=== PATIENT | female | born 1950 | race Caucasian/White ===

== ENCOUNTER 2016-10-18 02:48 | Inpatient (IN) | payer OTHER ==
[~2016-10-18] VITALS: Ht 157.5 cm; Wt 63.8 kg
[~2016-10-18 02:48] MED LIST: FURO-92 PO; GABA300C10 PO; GLIP5TAB10 PO; LOVA20TA2 PO; METF500T4 PO; MORP-52 PO; OXYC10TA6 PO; VERA120T74 PO
[2016-10-18] MEDS ORDERED: ONDANSETRON 2MG/ML, 2ML ONE ×2 (02:55→02:59)
[2016-10-18] MEDS ORDERED: MORPHINE SULFATE 4 MG/ML, 1ML ONE ×2 (02:58→02:59)
[2016-10-18] MEDS ORDERED: SODIUM CHLORIDE FLUSH 10ML SYR IVF ONE (03:00)
[2016-10-18] MEDS ORDERED: SODIUM CHLORIDE 0.9% 1,000ML IVBOLUS ONE ×2 (03:00→05:00)
[2016-10-18] MEDS ORDERED: ONDANSETRON 2MG/ML, 2ML IVPush ONE (03:00)
[2016-10-18] MEDS ORDERED: HYDROmorphone 1 MG/ML, 1ML ONE ×2 (03:01→03:11)
[2016-10-18] MEDS: HYDROmorphone 1 MG/ML, 1ML IVPush PRN ×2 (03:04→03:28)
[2016-10-18 03:22] LABS: ASPARTATE AMINO TRANSFERASE 15 U/L (15-37); BLOOD UREA NITROGEN 10 mg/dL (7-18)
[2016-10-18] MEDS ORDERED: GABA600T2 PO (03:48)
[2016-10-18] MEDS ORDERED: FISH OIL (03:48)
[2016-10-18] MEDS ORDERED: LOVA40TA2 PO (03:48)
[2016-10-18] MEDS ORDERED: ASPI-496 PO (03:49)
[2016-10-18] MEDS ORDERED: CLOP75TA52 PO (03:55)
[2016-10-18 03:56] LABS: HEMATOCRIT 44.9 % (34.6-47.8); WHITE BLOOD COUNT 11.5 x10^3/uL (3.4-10)
[2016-10-18] MEDS ORDERED: SODIUM CHLORIDE 0.9% 1,000 ML IV ONE (04:51)
[2016-10-18] MEDS ORDERED: POTASSIUM CHLORIDE 40 MEQ in SODIUM CHLORIDE 0.9% 500 ML IV ONE (05:00)
[2016-10-18] MEDS: NICOTINE 14MG/24 HR PATCH.TD24 TD SCH (05:30)
[2016-10-18] MEDS ORDERED: ENALAPRILAT 1.25 MG/ML, 2ML IVPush PRN (05:30)
[2016-10-18] MEDS ORDERED: ONDANSETRON 2MG/ML, 2ML IVPush PRN (05:30)
[2016-10-18] MEDS ORDERED: METOCLOPRAMIDE 5 MG/ML, 2ML IVPush ONE ×2 (05:30→15:30)
[2016-10-18] MEDS: HYDROmorphone 2 MG/ML, 1ML IVPush PRN ×5 (06:37→22:43)
[2016-10-18] MEDS: INSULIN ASPART 100 UNITS/ML, PEN SQ-INSULIN SCH ×4 (07:00→23:03)
[2016-10-18] MEDS: NS + 20MEQ KCL 1,000 ML IV SCH ×3 (07:50→23:15)
[2016-10-18 08:02] VITALS: BP 147/67
[2016-10-18 13:32] VITALS: BP 136/61
[2016-10-18 15:15] VITALS: BP 139/92
[2016-10-18] MEDS ORDERED: MAGNESIUM SULFATE PMX 4GM/100M 100 ML IV ONE (15:30)
[2016-10-18 19:30] VITALS: BP 155/83
[2016-10-19 01:40] VITALS: BP 153/65
[2016-10-19] MEDS: NICOTINE 14MG/24 HR PATCH.TD24 TD SCH (02:29)
[2016-10-19] MEDS: HYDROmorphone 2 MG/ML, 1ML IVPush PRN ×4 (02:29→18:19)
[2016-10-19 05:24] LABS: HEMATOCRIT 40.5 % (34.6-47.8); HEMOGLOBIN 13.6 g/dL (11.7-16.4); WHITE BLOOD COUNT 9.6 x10^3/uL (3.4-10)
[2016-10-19 05:34] LABS: BLOOD UREA NITROGEN 7 mg/dL (7-18)
[2016-10-19] MEDS: INSULIN ASPART 100 UNITS/ML, PEN SQ-INSULIN SCH ×4 (05:52→23:57)
[2016-10-19] MEDS: NS + 20MEQ KCL 1,000 ML IV SCH ×2 (06:51→22:07)
[2016-10-19 07:21] VITALS: BP 128/57
[2016-10-19] MEDS ORDERED: POTASSIUM CHLORIDE 40 MEQ in SODIUM CHLORIDE 0.9% 500 ML IV ONE (12:00)
[2016-10-19 13:54] VITALS: BP 162/75
[2016-10-19] MEDS ORDERED: FENTANYL PF 100 MCG/2ML ONE ×2 (14:33)
[2016-10-19] MEDS ORDERED: MIDAZOLAM 1 MG/ML, 2ML ONE ×2 (14:33→17:25)
[2016-10-19] MEDS ORDERED: hydrALAzine 20 MG/ML, 1ML ONE (15:36)
[2016-10-19] MEDS ORDERED: ROCURONIUM 10 MG/ML ONE (15:36)
[2016-10-19] MEDS ORDERED: SUCCINYLCHOLINE 20 MG/ML, 10ML ONE (15:36)
[2016-10-19] MEDS ORDERED: CEFAZOLIN 1,000 MG ONE (15:36)
[2016-10-19] MEDS ORDERED: PROPOFOL 10 MG/ML, 20ML ONE (15:36)
[2016-10-19] MEDS ORDERED: HYDROmorphone 2 MG/ML, 1ML ONE (16:00)
[2016-10-19 17:24] LABS: ABG COLLECTION SITE ARTERIAL LINE
[2016-10-19] MEDS ORDERED: PROPOFOL 100 ML IV ONE (17:46)
[2016-10-19] MEDS: PROPOFOL 100 ML IV PRN (18:00)
[2016-10-19] MEDS: hydrALAzine 20 MG/ML, 1ML IVPush PRN (18:00)
[2016-10-19] MEDS ORDERED: LABETALOL 5MG/ML, 20ML IVPush PRN (18:00)
[2016-10-19] MEDS ORDERED: morphine SULFATE 10 MG/ML, 1ML IV PRN (19:30)
[2016-10-19] MEDS ORDERED: POTASSIUM CHLORIDE 20 MEQ in D5%-0.45% NACL 1,000 ML IV SCH (19:30)
[2016-10-19] MEDS: METRONIDAZOLE PMX 500MG/100ML 100 ML IVPB SCH (19:38)
[2016-10-19] MEDS: FENTANYL PF 2,500 MCG in SODIUM CHLORIDE 0.9% 200 ML IV PRN (19:39)
[2016-10-19] MEDS ORDERED: LIDOCAINE 1%, 2ML ENDO PRN (21:00)
[2016-10-19] MEDS: CEFOTETAN PMX 1GM/50ML 50 ML IVPB SCH (21:30)
[2016-10-20] MEDS ORDERED: SODIUM CHLORIDE 0.9%, 500ML IVBOLUS ONE (01:00)
[2016-10-20] MEDS: PROPOFOL 100 ML IV PRN ×2 (01:34→08:57)
[2016-10-20] MEDS: METRONIDAZOLE PMX 500MG/100ML 100 ML IVPB SCH ×3 (03:32→19:37)
[2016-10-20 04:37] LABS: ABG COLLECTION SITE ARTERIAL LINE
[2016-10-20 04:48] LABS: HEMATOCRIT 44.3 % (34.6-47.8); HEMOGLOBIN 14.9 g/dL (11.7-16.4); WHITE BLOOD COUNT 12.4 x10^3/uL (3.4-10)
[2016-10-20 05:07] LABS: ASPARTATE AMINO TRANSFERASE 28 U/L (15-37); BLOOD UREA NITROGEN 10 mg/dL (7-18)
[2016-10-20] MEDS: INSULIN ASPART 100 UNITS/ML, PEN SQ-INSULIN SCH ×3 (07:44→17:56)
[2016-10-20] MEDS: NICOTINE 14MG/24 HR PATCH.TD24 TD SCH (07:44)
[2016-10-20] MEDS: ENOXAPARIN 40 MG/0.4 ML SQ SCH (07:44)
[2016-10-20] MEDS ORDERED: MAGNESIUM SULFATE PMX 4GM/100M 100 ML IV ONE (08:00)
[2016-10-20] MEDS: NS + 20MEQ KCL 1,000 ML IV SCH ×2 (08:52→17:56)
[2016-10-20] MEDS: CEFOTETAN PMX 1GM/50ML 50 ML IVPB SCH ×2 (08:52→21:06)
[2016-10-20] MEDS: ONDANSETRON 2MG/ML, 2ML IV PRN ×2 (13:25→17:56)
[2016-10-20] MEDS: FENTANYL PF 2,500 MCG in SODIUM CHLORIDE 0.9% 200 ML IV PRN (22:39)
[2016-10-21] MEDS: NS + 20MEQ KCL 1,000 ML IV SCH ×3 (02:58→17:45)
[2016-10-21] MEDS: METRONIDAZOLE PMX 500MG/100ML 100 ML IVPB SCH ×3 (03:05→19:50)
[2016-10-21 04:00] VITALS: BP 108/40
[2016-10-21] MEDS: INSULIN ASPART 100 UNITS/ML, PEN SQ-INSULIN SCH ×5 (06:00→23:58)
[2016-10-21 06:06] LABS: HEMATOCRIT 29.5 % (34.6-47.8); WHITE BLOOD COUNT 5.7 x10^3/uL (3.4-10)
[2016-10-21 06:14] LABS: BLOOD UREA NITROGEN 12 mg/dL (7-18)
[2016-10-21] MEDS ORDERED: POTASSIUM CHLORIDE 40 MEQ in SODIUM CHLORIDE 0.9% 500 ML IV ONE (07:30)
[2016-10-21] MEDS: NICOTINE 14MG/24 HR PATCH.TD24 TD SCH (08:19)
[2016-10-21] MEDS: ENOXAPARIN 40 MG/0.4 ML SQ SCH (08:19)
[2016-10-21] MEDS: CEFOTETAN PMX 1GM/50ML 50 ML IVPB SCH ×2 (08:38→21:32)
[2016-10-21] MEDS: ONDANSETRON 2MG/ML, 2ML IV PRN ×2 (08:38→19:50)
[2016-10-21 13:40] VITALS: BP 149/70
[2016-10-21 18:41] VITALS: BP 140/62
[2016-10-22 00:29] VITALS: BP 124/62
[2016-10-22] MEDS: FENTANYL PF 2,500 MCG in SODIUM CHLORIDE 0.9% 200 ML IV PRN (00:34)
[2016-10-22] MEDS: METRONIDAZOLE PMX 500MG/100ML 100 ML IVPB SCH ×3 (03:12→22:46)
[2016-10-22] MEDS: NS + 20MEQ KCL 1,000 ML IV SCH (03:26)
[2016-10-22] MEDS: ONDANSETRON 2MG/ML, 2ML IV PRN ×3 (03:31→21:03)
[2016-10-22 05:07] LABS: HEMOGLOBIN 9.2 g/dL (11.7-16.4); WHITE BLOOD COUNT 5.8 x10^3/uL (3.4-10)
[2016-10-22 05:17] LABS: BLOOD UREA NITROGEN 9 mg/dL (7-18)
[2016-10-22] MEDS: INSULIN ASPART 100 UNITS/ML, PEN SQ-INSULIN SCH ×3 (06:23→15:35)
[2016-10-22 07:00] VITALS: BP 145/61
[2016-10-22] MEDS ORDERED: POTASSIUM CHLORIDE 40 MEQ in SODIUM CHLORIDE 0.9% 500 ML IV ONE ×2 (07:30→15:30)
[2016-10-22] MEDS: ENOXAPARIN 40 MG/0.4 ML SQ SCH (08:51)
[2016-10-22] MEDS: NICOTINE 14MG/24 HR PATCH.TD24 TD SCH (08:51)
[2016-10-22] MEDS: CEFOTETAN PMX 1GM/50ML 50 ML IVPB SCH ×2 (08:51→20:50)
[2016-10-22] MEDS ORDERED: HYDROmorphone PCA 30 MG/30 ML IV PRN (13:00)
[2016-10-22 14:20] VITALS: BP 148/68
[2016-10-22 18:54] VITALS: BP 148/69
[2016-10-23] MEDS: NS + 20MEQ KCL 1,000 ML IV SCH ×4 (00:20→17:28)
[2016-10-23 02:28] VITALS: BP 160/70
[2016-10-23] MEDS: INSULIN ASPART 100 UNITS/ML, PEN SQ-INSULIN SCH ×5 (05:59→23:48)
[2016-10-23 06:13] LABS: BLOOD UREA NITROGEN 8 mg/dL (7-18)
[2016-10-23] MEDS: METRONIDAZOLE PMX 500MG/100ML 100 ML IVPB SCH (06:16)
[2016-10-23 08:26] VITALS: BP 177/73
[2016-10-23] MEDS: NICOTINE 14MG/24 HR PATCH.TD24 TD SCH (08:30)
[2016-10-23] MEDS: ONDANSETRON 2MG/ML, 2ML IV PRN (08:45)
[2016-10-23] MEDS: CEFOTETAN PMX 1GM/50ML 50 ML IVPB SCH (08:56)
[2016-10-23] MEDS: ENOXAPARIN 40 MG/0.4 ML SQ SCH (08:58)
[2016-10-23] MEDS: hydrALAzine 20 MG/ML, 1ML IVPush PRN (09:11)
[2016-10-23] MEDS: POTASSIUM CHLORIDE 20 MEQ TAB.ER.PRT PO SCH ×2 (10:32→17:58)
[2016-10-23 11:52] VITALS: BP 160/70
[2016-10-23 15:28] VITALS: BP 146/59
[2016-10-23 19:50] VITALS: BP 161/72
[2016-10-24] MEDS: NS + 20MEQ KCL 1,000 ML IV SCH ×2 (00:34→07:34)
[2016-10-24 01:32] VITALS: BP 152/77
[2016-10-24] MEDS: INSULIN ASPART 100 UNITS/ML, PEN SQ-INSULIN SCH ×4 (06:03→21:26)
[2016-10-24 06:36] LABS: BLOOD UREA NITROGEN 6 mg/dL (7-18)
[2016-10-24 06:53] VITALS: BP 143/67
[2016-10-24] MEDS: POTASSIUM CHLORIDE 20 MEQ TAB.ER.PRT PO SCH ×3 (08:00→17:37)
[2016-10-24] MEDS: ENOXAPARIN 40 MG/0.4 ML SQ SCH (08:26)
[2016-10-24] MEDS: NICOTINE 14MG/24 HR PATCH.TD24 TD SCH (08:30)
[2016-10-24 13:10] VITALS: BP 145/59
[2016-10-24] MEDS: OXYcodone/APAP 5/325MG TABLET PO PRN ×2 (16:48→21:18)
[2016-10-24 19:45] VITALS: BP 145/65
[2016-10-25] VITALS (8 sets, daily range): BP systolic 103–150; BP diastolic 43–75
[2016-10-25] MEDS: OXYcodone/APAP 5/325MG TABLET PO PRN ×6 (01:15→22:46)
[2016-10-25] MEDS ORDERED: NS + 20MEQ KCL 1,000 ML IV SCH (05:13)
[2016-10-25 05:57] LABS: ASPARTATE AMINO TRANSFERASE 16 U/L (15-37); BLOOD UREA NITROGEN 3 mg/dL (7-18)
[2016-10-25] MEDS: ONDANSETRON 2MG/ML, 2ML IV PRN (06:01)
[2016-10-25 06:03] LABS: HEMOGLOBIN 10.5 g/dL (11.7-16.4); WHITE BLOOD COUNT 5.8 x10^3/uL (3.4-10)
[2016-10-25] MEDS: INSULIN ASPART 100 UNITS/ML, PEN SQ-INSULIN SCH ×4 (06:25→22:36)
[2016-10-25] MEDS: NICOTINE 14MG/24 HR PATCH.TD24 TD SCH (08:30)
[2016-10-25] MEDS: POTASSIUM CHLORIDE 20 MEQ TAB.ER.PRT PO SCH ×2 (10:00→16:52)
[2016-10-25] MEDS: ENOXAPARIN 40 MG/0.4 ML SQ SCH (10:00)
[2016-10-26] MEDS: OXYcodone/APAP 5/325MG TABLET PO PRN ×4 (02:43→14:53)
[2016-10-26 02:45] VITALS: BP 139/68
[2016-10-26] MEDS: INSULIN ASPART 100 UNITS/ML, PEN SQ-INSULIN SCH (07:00)
[2016-10-26 08:03] VITALS: BP 157/65
[2016-10-26 08:21] LABS: HEMATOCRIT 30.5 % (34.6-47.8); HEMOGLOBIN 10.5 g/dL (11.7-16.4); WHITE BLOOD COUNT 5.1 x10^3/uL (3.4-10)
[2016-10-26 08:28] LABS: BLOOD UREA NITROGEN 4 mg/dL (7-18)
[2016-10-26] MEDS: NICOTINE 14MG/24 HR PATCH.TD24 TD SCH (08:30)
[2016-10-26] MEDS: ENOXAPARIN 40 MG/0.4 ML SQ SCH (09:32)
[2016-10-26] MEDS: POTASSIUM CHLORIDE 20 MEQ TAB.ER.PRT PO SCH (09:32)
[2016-10-26] MEDS ORDERED: OXYC1TAB7 PO (10:28)
[2016-10-26] MEDS ORDERED: POTA20TA6 PO (10:37)
[2016-10-26 13:12] VITALS: BP 139/73
[2016-10-26 16:05] VITALS: BP 139/58
== END 2016-10-26 16:05 | DRG 330 ==
LOC: ED 03:03 → EDIP 04:37 → 4NOR 05:12 → CCU 10-19 17:38 → 4NOR 10-21 12:35
PROVIDERS: ADMIT Internal Medicine; ATTEND Internal Medicine
PROC: 0DN80ZZ Release Small Intestine, Open Approach (ICD-10-PCS; 2016-10-19)
PROC: 0DB80ZZ Excision of Small Intestine, Open Approach (ICD-10-PCS; principal; 2016-10-19 15:00)
DX: K56.5 Intestinal adhesions [bands] with obstruction (postinfection) (principal); E87.2 Acidosis; E11.40 Type 2 diabetes mellitus with diabetic neuropathy, unspecified; E11.51 Type 2 diabetes mellitus with diabetic peripheral angiopathy without gangrene; E83.42 Hypomagnesemia; E87.6 Hypokalemia; E78.00 Pure hypercholesterolemia, unspecified; R06.00 Dyspnea, unspecified; E78.5 Hyperlipidemia, unspecified; I10 Essential (primary) hypertension; I25.10 Atherosclerotic heart disease of native coronary artery without angina pectoris; J44.9 Chronic obstructive pulmonary disease, unspecified; M51.36 Other intervertebral disc degeneration, lumbar region; F17.210 Nicotine dependence, cigarettes, uncomplicated; Z88.5 Allergy status to narcotic agent; Z79.4 Long term (current) use of insulin; Z91.19 Patient's noncompliance with other medical treatment and regimen; Z95.2 Presence of prosthetic heart valve; Z90.49 Acquired absence of other specified parts of digestive tract; Z88.6 Allergy status to analgesic agent; Z86.79 Personal history of other diseases of the circulatory system
CPT/HCPCS: 36415; 36600; 71010; 74000; 74177; 80048; 80053; 81003; 82803; 82962; 83605; 83690; 83735; 84132; 84478; 85025; 85610; 85730; 87070; 87081; 87205; 88307; 93005; 94002; 96361; 96374; 96375; J0690; J1170; J1650; J1815; J2250; J2405; J2704; J3010; J3480; C1765; J0330; J0360; J2765; J3475; J7030; J7040; J7050; S0074